=== PATIENT | male | born 1980 | race Two or more races ===

== ENCOUNTER → 2018-05-13 | Day surgery (SDC) | payer OTHER ==
[~2018-05-13] VITALS: Ht 162.6 cm; Wt 54.4 kg
[~2018-05-13] MED LIST: FLUMAZENIL 0.1 MG/ML INJ 10ML MDV IV ONE; LIDOCAINE VISCOUS 2% 15ML UD ONE; NALOXONE HCL 0.4 MG/ML VIAL ONE; SODIUM CHLORIDE LOCK 10 ML ONE; diphenhdrAMINE HCL 50 MG/1 ML VL ONE
[2018-05-13 07:46] LABS: Basophils # (auto) 0 uL; Basophils % (auto) 0.6 % (0.0-2.0); Eosinophils # (auto) 0.1 uL; Eosinophils % (auto) 1.9 % (0.0-7.0); Hemoglobin 17.6 g/dL (13.5-17.5); Lymphocytes # (auto) 1.5 uL; Lymphocytes % (auto) 24.4 % (10.0-50.0); Mean Corpuscular Hemoglobin 30.4 pg (28.0-32.0); Mean Corpuscular Hgb Conc. 35.3 g/dL (32.0-36.0); Monocytes # (auto) 0.4 uL; Monocytes % (auto) 6.9 % (0.0-12.0); Neutrophils # (auto) 4.2 uL; Neutrophils % (auto) 66.2 % (37.0-80.0); Nucleated Red Blood Cells % 0.4 %; Platelet Count (auto) 183 10^3/uL (140-450); Red Blood Cells 5.81 10^6/uL (4.5-5.90); Red Cell Distribution Width 12.9 % (11.8-14.3); White Blood Cell 6.3 10^3/uL (4.4-10.8)
[2018-05-13 07:58] LABS: INR 1.07 (0.9-1.15); Partial Thromboplastin Time 26.5 sec (23.78-33.04); Prothrombin Time 11.4 sec (9.27-12.13)
[2018-05-13] MEDS: MIDAZOLAM HCL 5 MG/ML-1ML VIAL ONE ×3 (09:20→09:31)
[2018-05-13] MEDS: fentaNYL CITRATE 100 MCG/2 ML VL ONE ×2 (09:20→09:26)
[2018-05-13 10:15] VITALS: BP 121/70
== END | disposition home or self-care (01) ==
LOC: EEVIPCON 06:15 → GI 06:15 → EDBD 08:30
PROVIDERS: ATTEND Internal Medicine Gastroenterology
DX: K29.50 Unspecified chronic gastritis without bleeding (principal); B96.81 Helicobacter pylori [H. pylori] as the cause of diseases classified elsewhere; K59.00 Constipation, unspecified; Z98.890 Other specified postprocedural states
CPT/HCPCS: 36415; 43239; 45378; 85025; 85610; 85730; 88305; 88342; A6257; J1200; J2250; J2310; J3010; J7030; 99152